=== PATIENT | female | born 1995 | race African-American/Black ===

== ENCOUNTER 2022-09-08 13:30 | Outpatient (CLI) | payer BC, OTHER | END 2022-09-08 13:31 | disposition home or self-care (01) | LOC: CSHULT 13:30 | PROVIDERS: ATTEND Family Medicine | DX: O09.892 Supervision of other high risk pregnancies, second trimester (principal); Z3A.19 19 weeks gestation of pregnancy | CPT/HCPCS: 76805 ==

== ENCOUNTER 2022-12-21 17:12 | Day surgery (SDC) | payer BC, OTHER ==
[2022-12-21 18:02] VITALS: BMI 23.7
[2022-12-21 19:13] LABS: Hemoglobin 10.3 g/dL (12.0-15.5); Mean Corpuscular HGB CONC 34.6 g/dL (32.0-36.0); Mean Corpuscular Hemoglobin 30.7 pg (27.0-33.0); Mean Platelet Volume 9.6 fl (7.4-10.4); Platelet Count 294 10x3/uL (150-450); RBC Distribution Width 12.5 % (11.5-14.5); Red Blood Cell (RBC) Count 3.35 10x6/uL (3.90-5.03); White Blood Cell (WBC) Count 7.9 10x3/uL (3.5-10.5)
[2022-12-21 19:26] LABS: ALT (SGPT) Less than 6 U/L (8-55); AST (SGOT) 15 U/L (5-34); Albumin 3.3 g/dL (3.5-5.0); Alkaline Phosphatase 130 U/L (40-110); Anion Gap 12 mmol/L (10-20); BUN (Urea Nitrogen) 5 mg/dL (7.0-18.7); Bilirubin, Total 1.1 mg/dL (0.2-1.2); Calc. Creatinine Clearance 121 mL/min (70-130); Calcium 8.8 mg/dL (7.8-10.44); Carbon Dioxide 23 mmol/L (22-29); Chloride 106 mmol/L (98-107); Estimated GFR 113; Globulin 2.7 g/dL (2.4-3.5); Glucose 74 mg/dL (70-105); Potassium 4.4 mmol/L (3.5-5.1); Sodium 137 mmol/L (136-145)
[2022-12-21 19:34] LABS: Creatinine, Urine 98.79 mg/dL (47-110); Protein, Urine Random Quant Less than 10 mg/dL (1-14)
== END 2022-12-21 19:38 | disposition home or self-care (01) ==
LOC: CSHLD/OP 17:12
PROVIDERS: ATTEND Family Medicine
DX: O36.5930 Maternal care for other known or suspected poor fetal growth, third trimester, not applicable or unspecified (principal); Z79.899 Other long term (current) drug therapy; Z3A.34 34 weeks gestation of pregnancy
CPT/HCPCS: 36415; 80053; 82570; 84156; 85027; 99284

== ENCOUNTER 2022-12-24 15:15 | Day surgery (SDC) | payer BC, OTHER | END 2022-12-24 20:05 | disposition home or self-care (01) | LOC: CSHLD/OP 15:15 | PROVIDERS: ATTEND Family Medicine | DX: Z36.4 Encounter for antenatal screening for fetal growth retardation (principal); Z3A.35 35 weeks gestation of pregnancy | CPT/HCPCS: 59025; 76815; 76819 ==

== ENCOUNTER 2023-01-05 10:53 | Inpatient (IN) | payer BC, OTHER ==
[2023-01-05 12:31] VITALS: BMI 24.0
[2023-01-05] MEDS ORDERED: Diphenoxylate HCl/Atropine Tablet PO PRN (12:36)
[2023-01-05] MEDS ORDERED: Tranexamic Acid 1,000 MG in Sodium Chloride 0.9% 250 ML 250 ML IVPB PRN (12:36)
[2023-01-05] MEDS ORDERED: hydrALAZINE 20 MG/ML VIAL SLOW IVP PRN (12:36)
[2023-01-05] MEDS ORDERED: Misoprostol 200 MCG TAB PR PRN (12:36)
[2023-01-05] MEDS ORDERED: Bicitra 30 ML UDCUP PO PRN (12:36)
[2023-01-05] MEDS ORDERED: Famotidine/PF 20 mg/2ml Vial SLOW IVP PRN (12:36)
[2023-01-05] MEDS ORDERED: Promethazine HCl 25 MG/ML VIAL IM PRN ×2 (12:36→16:27)
[2023-01-05] MEDS ORDERED: Ondansetron PF 4 MG/2 ML Vial IVP PRN ×2 (12:36→16:27)
[2023-01-05] MEDS ORDERED: Carboprost 250 MCG/ML AMP IM PRN (12:36)
[2023-01-05] MEDS ORDERED: NS w/ Oxytocin 30 units 500 ML IV SCH (12:45)
[2023-01-05] MEDS ORDERED: CEFAZOLIN 2 GM in Sodium Chloride 0.9% 100 ML IVPB SCH (12:45)
[2023-01-05 12:53] LABS: Hemoglobin 10.3 g/dL (12.0-15.5); Mean Corpuscular HGB CONC 34.2 g/dL (32.0-36.0); Mean Corpuscular Hemoglobin 30.2 pg (27.0-33.0); Mean Corpuscular Volume 88.3 fl (81.6-98.3); Mean Platelet Volume 9.7 fl (7.4-10.4); Platelet Count 336 10x3/uL (150-450); RBC Distribution Width 12.5 % (11.5-14.5); Red Blood Cell (RBC) Count 3.41 10x6/uL (3.90-5.03); White Blood Cell (WBC) Count 7.1 10x3/uL (3.5-10.5)
[2023-01-05 13:12] LABS: ALT (SGPT) 7 U/L (8-55); AST (SGOT) 16 U/L (5-34); Albumin 3.4 g/dL (3.5-5.0); Alkaline Phosphatase 151 U/L (40-110); Anion Gap 12 mmol/L (10-20); BUN (Urea Nitrogen) 4 mg/dL (7.0-18.7); Bilirubin, Total 1.2 mg/dL (0.2-1.2); Calc. Creatinine Clearance 135 mL/min (70-130); Calcium 8.7 mg/dL (7.8-10.44); Carbon Dioxide 23 mmol/L (22-29); Chloride 107 mmol/L (98-107); Estimated GFR 124; Globulin 2.9 g/dL (2.4-3.5); Glucose 74 mg/dL (70-105); Potassium 3.8 mmol/L (3.5-5.1); Protein, Total 6.3 g/dL (6.0-8.3); Sodium 138 mmol/L (136-145)
[2023-01-05 13:26] LABS: HBSAg Index 0.17 S/CO (0-0.99); Hep B Surf Ag Non-Reactive S/CO (NonReactive)
[2023-01-05 13:27] LABS: Syphilis Antibody Nonreactive (Nonreactive); Syphilis Antibody Index 0.14 S/CO (<1.00 Non-Reactive)
[2023-01-05 14:37] LABS: SARS-CoV-2 NAA Rapid Test Not Detected (NotDetected)
[2023-01-05] MEDS ORDERED: Morphine PF 10 MG/10 ML VIAL ONE (16:11)
[2023-01-05] MEDS ORDERED: Oxytocin 10 UNITS/ML VIAL ONE (16:12)
[2023-01-05] MEDS ORDERED: Midazolam HCl 2 mg/2 ml Vial ONE (16:17)
[2023-01-05] MEDS ORDERED: Fentanyl 100 MCG/2 ML VIAL ONE (16:17)
[2023-01-05] MEDS ORDERED: Promethazine HCl 25 MG SUPP PR PRN (16:27)
[2023-01-05] MEDS ORDERED: Meperidine HCl/PF 25 MG/ML VIAL SLOW IVP PRN (16:27)
[2023-01-05] MEDS ORDERED: Ketorolac Tromethamine 30 MG/ML VIAL IVP PRN (16:27)
[2023-01-05] MEDS ORDERED: Naloxone HCl 0.4 mg/ml Vial IVP PRN ×2 (16:27)
[2023-01-05] MEDS ORDERED: diphenhydrAMINE 50 MG/ML VIAL IVP PRN (16:27)
[2023-01-05] MEDS ORDERED: Moisturizing Cream (Eucerin) 113 GM JAR TOP PRN (16:27)
[2023-01-05] MEDS ORDERED: Fentanyl 100 MCG/2 ML VIAL SLOW IVP PRN (16:27)
[2023-01-05] MEDS ORDERED: Naloxone HCl 0.4 mg/ml Vial IV PRN (16:27)
[2023-01-05] MEDS ORDERED: Ondansetron HCl/PF 4 MG/2 ML Vial IVP PRN (16:27)
[2023-01-05] MEDS ORDERED: Ketorolac Tromethamine 30 MG/ML VIAL IVP SCH (16:30)
[2023-01-05] MEDS ORDERED: Communication Order-Pharmacy FS SCH (16:30)
[2023-01-05] MEDS ORDERED: Ondansetron PF 4 MG/2 ML Vial ONE (17:08)
[2023-01-05] MEDS ORDERED: PHENYLEPHRINE-NS 100 MCG/ML 10 ML SYRINGE ONE (17:08)
[2023-01-05 18:03] LABS: HIV (1/2) Antibody/Antigen Non-Reactive (NonReactive); HIV 1/2 INDEX 0.13 S/CO (<1.00)
[2023-01-05] MEDS: Lactated Ringer's 1,000 ML IV SCH ×2 (19:26→23:39)
[2023-01-06] MEDS: Lactated Ringer's 1,000 ML IV SCH (06:29)
[2023-01-06] MEDS ORDERED: Simethicone Chewable 80 MG TAB PO PRN (08:41)
[2023-01-06] MEDS ORDERED: HYDROcodone/Acetaminophen 5/325 mg Tablet PO PRN (08:41)
[2023-01-06] MEDS ORDERED: Promethazine HCl 25 MG/ML VIAL IM PRN (08:41)
[2023-01-06] MEDS ORDERED: Bisacodyl 10 MG SUPP PR PRN (08:41)
[2023-01-06] MEDS ORDERED: hydrALAZINE 20 MG/ML VIAL SLOW IVP PRN (08:41)
[2023-01-06] MEDS ORDERED: diphenhydrAMINE 25 MG CAP PO PRN (08:41)
[2023-01-06] MEDS ORDERED: Ondansetron PF 4 MG/2 ML Vial IVP PRN (08:41)
[2023-01-06] MEDS ORDERED: Boostrix 0.5 ML (Tdap) VIAL (>/=7 yrs of age) IM ONE (08:41)
[2023-01-06] MEDS ORDERED: Ketorolac Tromethamine 30 MG/ML VIAL IVP SCH (09:00)
[2023-01-06] MEDS: Ferrous Sulfate 325 MG TAB PO SCH ×2 (09:24→21:28)
[2023-01-06] MEDS: Prenatal Vitamin 1 TAB PO SCH (09:24)
[2023-01-06] MEDS: Docusate 100 MG CAP PO SCH ×2 (09:24→21:28)
[2023-01-06] MEDS: HYDROcodone/Acetaminophen 5/325 mg Tablet PO PRN ×3 (09:24→21:27)
[2023-01-06 10:10] LABS: Hemoglobin 8.2 g/dL (12.0-15.5); Mean Corpuscular HGB CONC 34.7 g/dL (32.0-36.0); Mean Corpuscular Hemoglobin 30.3 pg (27.0-33.0); Mean Corpuscular Volume 87.1 fl (81.6-98.3); Mean Platelet Volume 9.7 fl (7.4-10.4); Platelet Count 263 10x3/uL (150-450); RBC Distribution Width 12.3 % (11.5-14.5); Red Blood Cell (RBC) Count 2.71 10x6/uL (3.90-5.03); White Blood Cell (WBC) Count 12.7 10x3/uL (3.5-10.5)
[2023-01-06] MEDS: Ibuprofen 800 MG TAB PO SCH ×2 (13:27→21:28)
[2023-01-06] MEDS ORDERED: cloNIDine 0.1 MG TAB PO PRN (16:56)
[2023-01-07] MEDS: HYDROcodone/Acetaminophen 5/325 mg Tablet PO PRN ×3 (03:16→19:54)
[2023-01-07] MEDS: Ibuprofen 800 MG TAB PO SCH ×3 (06:17→21:47)
[2023-01-07] MEDS: Docusate 100 MG CAP PO SCH ×2 (08:37→19:54)
[2023-01-07] MEDS: Prenatal Vitamin 1 TAB PO SCH (08:37)
[2023-01-07] MEDS: Ferrous Sulfate 325 MG TAB PO SCH ×2 (08:37→19:54)
[2023-01-08] MEDS: Ibuprofen 800 MG TAB PO SCH (05:45)
[2023-01-08] MEDS: HYDROcodone/Acetaminophen 5/325 mg Tablet PO PRN ×2 (05:45→10:20)
[2023-01-08 08:00] VITALS: BP 133/79; TEMP 98.3
[2023-01-08] MEDS: Prenatal Vitamin 1 TAB PO SCH (08:22)
[2023-01-08] MEDS: Ferrous Sulfate 325 MG TAB PO SCH (08:22)
[2023-01-08] MEDS: Docusate 100 MG CAP PO SCH (08:22)
== END 2023-01-08 12:10 | disposition home or self-care (01) | DRG 788 ==
LOC: CSHLD/OP 10:53 → CSHLD 10:56 → CSHPP 22:00
PROVIDERS: ADMIT Family Medicine; ATTEND Family Medicine
PROC: 3E0P05Z Introduction of Adhesion Barrier into Female Reproductive, Open Approach (ICD-10-PCS; principal; 2023-01-05)
PROC: 10D00Z1 Extraction of Products of Conception, Low, Open Approach (ICD-10-PCS; 2023-01-05)
DX: O13.4 Gestational [pregnancy-induced] hypertension without significant proteinuria, complicating childbirth (principal); O34.211 Maternal care for low transverse scar from previous cesarean delivery; Z37.0 Single live birth; Z20.822 Contact with and (suspected) exposure to COVID-19; O36.5930 Maternal care for other known or suspected poor fetal growth, third trimester, not applicable or unspecified; Z3A.37 37 weeks gestation of pregnancy; Z98.890 Other specified postprocedural states; Z79.899 Other long term (current) drug therapy; F41.9 Anxiety disorder, unspecified; O99.344 Other mental disorders complicating childbirth; J45.909 Unspecified asthma, uncomplicated; O99.52 Diseases of the respiratory system complicating childbirth
CPT/HCPCS: 36415; 51702; 80053; 85027; 86780; 86850; 86900; 86901; 87340; 87389; J1885; J2250; J2274; J2405; J2590; J3010; U0002